=== PATIENT | male | born 1980 | race African-American/Black ===

== ENCOUNTER 2023-02-07 12:33 | Emergency (ER) | payer OTHER ==
[~2023-02-07] VITALS: Ht 188 cm; Wt 90.7 kg
[2023-02-07] MEDS ORDERED: CIPROFLOXACIN2.5 ML OP ×2 (16:31→16:33)
== END 2023-02-07 16:52 | disposition home or self-care (01) ==
LOC: ER 12:34
DX: S05.91XA Unspecified injury of right eye and orbit, initial encounter (principal)